=== PATIENT | female | born 1990 | race Caucasian/White ===

== ENCOUNTER 2016-09-12 18:08 | Emergency (ER) | payer OTHER ==
[~2016-09-12] VITALS: Ht 160 cm; Wt 104.5 kg
[~2016-09-12 18:08] MED LIST: AMOXICILLIN500 MG OR; AMOXICILLIN500 MG PO; BREVICON PO; CIPROFLOXACN500 MG PO; FLEXERIL PO; MACRODANTIN100 MG PO; MICONAZOLE2 % VT; MOTRIN800 MG PO; NAPROSYN500 MG PO; NO; NO HOME MEDS; NO MEDS; PENICILLN VK500 M1 OR; PRENATABS FA PO; TRAMADOL HYDROC50 MG PO; ULTRAM50 M1 PO; ZITHROMAX250 MG OR; ZOFRAN ODT4 MG PO
[2016-09-12 18:42] LABS: HEMOGLOBIN 13.4 g/dl (12.0-16.0); IMMATURE GRANULOCYTES 0.2 % (0.0-1.0); MEAN CELL VOLUME 86.2 fL CALC (80.0-100.0); MEAN CORPUSCULAR HGB 28.9 pG CALC (26.0-32.0); MEAN CORPUSCULAR HGB CONC 33.5 g/L CALC (32.0-36.0); NEUT# 8.61 thou/uL (2.00-7.15); RED BLOOD COUNT 4.64 mill/uL (4.20-5.60); RED CELL DISTRI WIDTH 13.3 % (11.5-15.5)
[2016-09-12 18:50] LABS: INFLUENZA A POSITIVE (NONE DETECT); INFLUENZA B NONE DETECTED (NONE DETECT)
[2016-09-12 18:54] LABS: ALBUMIN 4.9 g/dL (3.2-5.0); ALKALINE PHOSPHATASE 84 u/l (38-126); ANION GAP 22 (6-22 (CALC)); BILIRUBIN, TOTAL 0.5 mg/dL (0.0-1.4); BUN 8 mg/dL (7-17); BUN/CREATININE RATIO 11 (12-20 (CALC)); CARBON DIOXIDE 20 mmol/l (22-30); CHLORIDE 100 mmol/l (95-108); CREATININE 0.8 mg/dL (0.5-1.0); GFR > 60 ML/MIN (>=60 (CALC)); GFR FOR AFR.AMER. > 60 ML/MIN (>=60 (CALC)); GLUCOSE 158 mg/dL (65-105); POTASSIUM 3.9 mmol/l (3.5-5.1); SGOT/AST 22 u/l (14-36); SGPT/ALT 37 u/l (9-52); SODIUM 138 mmol/l (137-146); TOTAL PROTEIN 8.5 g/dL (6.3-8.2)
[2016-09-12] MEDS ORDERED: MOTRIN800 MG PO (20:21)
[2016-09-12] MEDS ORDERED: TAM75CAP PO (20:21)
[2016-09-12] MEDS ORDERED: AFRIN 12 HOUR0.05 % (20:21)
[2016-09-12] MEDS ORDERED: TYLENOL # 31 TA1 PO (20:21)
[2016-09-12 20:56] VITALS: BP 116/60
== END 2016-09-12 21:09 | disposition home or self-care (01) | DRG 153 ==
LOC: ED 18:08
PROVIDERS: Emergency Medicine
DX: J11.1 Influenza due to unidentified influenza virus with other respiratory manifestations (principal); R50.9 Fever, unspecified; R51 Headache; R05 Cough

== ENCOUNTER 2017-05-19 16:44 | Emergency (ER) | payer SELFPAY ==
[~2017-05-19] VITALS: Ht 160 cm; Wt 102.0 kg
[~2017-05-19 16:44] MED LIST changes: +AFRIN 12 HOUR0.05 %; +TAM75CAP PO; +TYLENOL # 31 TA1 PO
[2017-05-19 17:15] LABS: URINE BILIRUBIN - DIPSTICK NEGATIVE (NEGATIVE); URINE BLOOD DIPSTICK TRACE-INTACT (NEGATIVE); URINE COLOR YELLOW; URINE GLUCOSE - DIPSTICK NEGATIVE (NEGATIVE); URINE KETONE NEGATIVE (NEGATIVE); URINE NITRITE - DIPSTICK NEGATIVE (Negative); URINE PH 5.5 (4.5-8.0); URINE PROTEIN - DIPSTICK NEGATIVE (NEG-TRACE); URINE SPECIFIC GRAVITY 1.015; URINE UROBILINOGEN - DIPSTICK 0.2 E.U./dL (0.2)
[2017-05-19 17:16] LABS: URINE CLARITY TURBID; URINE LEUK ESTERASE SMALL (NEGATIVE)
[2017-05-19 17:37] LABS: HEMOGLOBIN 12.8 g/dl (12.0-16.0); IMMATURE GRANULOCYTES 0.3 % (0.0-1.0); MEAN CELL VOLUME 87.8 fL CALC (80.0-100.0); MEAN CORPUSCULAR HGB 28.8 pG CALC (26.0-32.0); MEAN CORPUSCULAR HGB CONC 32.8 g/L CALC (32.0-36.0); NEUT# 5.52 thou/uL (2.00-7.15); RED BLOOD COUNT 4.44 mill/uL (4.20-5.60); RED CELL DISTRI WIDTH 12.7 % (11.5-15.5)
[2017-05-19 17:48] LABS: ALBUMIN 4.1 g/dL (3.2-5.0); ALKALINE PHOSPHATASE 89 u/l (38-126); AMYLASE 72 u/l (30-110); ANION GAP 17 (6-22 (CALC)); BILIRUBIN, TOTAL 0.3 mg/dL (0.0-1.4); BUN 11 mg/dL (7-17); BUN/CREATININE RATIO 14 (12-20 (CALC)); CALCIUM 9.1 mg/dL (8.4-10.2); CARBON DIOXIDE 25 mmol/l (22-30); CHLORIDE 106 mmol/l (95-108); CREATININE 0.8 mg/dL (0.5-1.0); GFR > 60 ML/MIN (>=60 (CALC)); GFR FOR AFR.AMER. > 60 ML/MIN (>=60 (CALC)); GLUCOSE 110 mg/dL (65-105); LIPASE 68 u/l (23-300); POTASSIUM 3.9 mmol/l (3.5-5.1); SGOT/AST 30 u/l (14-36); SGPT/ALT 58 u/l (9-52); SODIUM 144 mmol/l (137-146); TOTAL PROTEIN 7.3 g/dL (6.3-8.2)
[2017-05-19 18:15] LABS: URINE BACTERIA RARE hpf; URINE SQUAMOUS EPITHELIAL CELL FEW EPI/hpf (0-FEW)
[2017-05-20 01:01] VITALS: BP 135/84
[2017-05-20] MEDS ORDERED: CIPROFLOXACN500 MG PO (01:01)
== END 2017-05-20 01:01 | disposition home or self-care (01) | DRG 690 ==
LOC: ED 16:44
PROVIDERS: Emergency Medicine
DX: N39.0 Urinary tract infection, site not specified (principal); B96.20 Unspecified Escherichia coli [E. coli] as the cause of diseases classified elsewhere; N83.202 Unspecified ovarian cyst, left side

== ENCOUNTER 2017-07-26 13:39 | Emergency (ER) | payer MEDICAID ==
[~2017-07-26] VITALS: Ht 160 cm; Wt 103.6 kg
[2017-07-26] MEDS ORDERED: SILVADENE1 % EX (14:04)
[2017-07-26] MEDS ORDERED: TORADOL PO (14:04)
[2017-07-26 14:17] VITALS: BP 151/95
== END 2017-07-26 14:17 | disposition home or self-care (01) | DRG 935 ==
LOC: ED 13:39
PROC: 2W2EX4Z Dressing of Right Hand using Bandage (ICD-10-PCS; principal; 2017-07-26)
DX: T23.261A Burn of second degree of back of right hand, initial encounter (principal); X10.2XXA Contact with fats and cooking oils, initial encounter; Y93.G3 Activity, cooking and baking; Y92.000 Kitchen of unspecified non-institutional (private) residence as the place of occurrence of the external cause

== ENCOUNTER 2017-11-06 16:04 | Emergency (ER) | payer SELFPAY ==
[~2017-11-06] VITALS: Ht 160 cm; Wt 90.0 kg
[~2017-11-06 16:04] MED LIST changes: +SILVADENE1 % EX; +TORADOL PO
[2017-11-06] MEDS ORDERED: AMOXICILLIN875 MG PO (17:14)
[2017-11-06 17:20] VITALS: BP 147/85
== END 2017-11-06 17:20 | disposition home or self-care (01) | DRG 153 ==
LOC: ED 16:04
DX: J02.0 Streptococcal pharyngitis (principal)

== ENCOUNTER 2017-11-16 08:20 | Emergency (ER) | payer OTHER ==
[~2017-11-16] VITALS: Ht 160 cm; Wt 100.0 kg
[~2017-11-16 08:20] MED LIST changes: +AMOXICILLIN875 MG PO
[2017-11-16 09:36] LABS: HEMATOCRIT 40.2 % (37.0-47.0); HEMOGLOBIN 13.3 g/dl (12.0-16.0); IMMATURE GRANULOCYTES 0.4 % (0.0-1.0); MEAN CELL VOLUME 89.7 fL CALC (80.0-100.0); MEAN CORPUSCULAR HGB 29.7 pG CALC (26.0-32.0); MEAN CORPUSCULAR HGB CONC 33.1 g/L CALC (32.0-36.0); NEUT# 3.75 thou/uL (2.00-7.15); RED BLOOD COUNT 4.48 mill/uL (4.20-5.60)
[2017-11-16 09:37] LABS: URINE BILIRUBIN - DIPSTICK NEGATIVE (NEGATIVE); URINE BLOOD DIPSTICK LARGE (NEGATIVE); URINE CLARITY CLOUDY; URINE COLOR YELLOW; URINE GLUCOSE - DIPSTICK NEGATIVE (NEGATIVE); URINE KETONE NEGATIVE (NEGATIVE); URINE LEUK ESTERASE SMALL (NEGATIVE); URINE NITRITE - DIPSTICK NEGATIVE (Negative); URINE PROTEIN - DIPSTICK TRACE mg/dL (NEG-TRACE); URINE UROBILINOGEN - DIPSTICK 0.2 E.U./dL (0.2)
[2017-11-16 09:41] LABS: URINE RBC 25-50 RBC/hpf (0-5)
[2017-11-16 09:42] LABS: URINE BACTERIA FEW hpf; URINE EPITHELIAL CELLS FEW EPI/hpf (0-FEW)
[2017-11-16 10:04] LABS: ALBUMIN 4.3 g/dL (3.2-5.0); ALKALINE PHOSPHATASE 78 u/l (38-126); AMYLASE 46 u/l (30-110); ANION GAP 17 (6-22 (CALC)); BILIRUBIN, TOTAL 0.6 mg/dL (0.0-1.4); BUN 6 mg/dL (7-17); BUN/CREATININE RATIO 8 (12-20 (CALC)); CARBON DIOXIDE 26 mmol/l (22-30); CHLORIDE 104 mmol/l (95-108); CREATININE 0.8 mg/dL (0.5-1.0); GFR > 60 ML/MIN (>=60 (CALC)); GFR FOR AFR.AMER. > 60 ML/MIN (>=60 (CALC)); LIPASE 49 u/l (23-300); POTASSIUM 4.4 mmol/l (3.5-5.1); SGOT/AST 16 u/l (14-36); SGPT/ALT 35 u/l (9-52); SODIUM 143 mmol/l (137-146); TOTAL PROTEIN 7.6 g/dL (6.3-8.2)
[2017-11-16] MEDS ORDERED: KEFLEX500 MG PO (10:58)
[2017-11-16 11:59] VITALS: BP 138/82
== END 2017-11-16 12:08 | disposition home or self-care (01) | DRG 392 ==
LOC: ED 08:20
PROVIDERS: Emergency Medicine
DX: R10.11 Right upper quadrant pain (principal); N39.0 Urinary tract infection, site not specified

== ENCOUNTER 2018-04-01 18:50 | Emergency (ER) | payer OTHER ==
[~2018-04-01] VITALS: Ht 160 cm; Wt 97.7 kg
[~2018-04-01 18:50] MED LIST changes: +KEFLEX500 MG PO
[2018-04-01 21:10] VITALS: BP 138/84
== END 2018-04-01 21:10 | disposition home or self-care (01) ==
LOC: ED 18:50
DX: S60.041A Contusion of right ring finger without damage to nail, initial encounter (principal); W22.03XA Walked into furniture, initial encounter; Y93.9 Activity, unspecified; Y92.009 Unspecified place in unspecified non-institutional (private) residence as the place of occurrence of the external cause

== ENCOUNTER 2018-10-08 07:27 | Emergency (ER) | payer OTHER ==
[~2018-10-08] VITALS: Ht 160 cm; Wt 104.0 kg
[2018-10-08] MEDS ORDERED: TAM75CAP PO (07:53)
[2018-10-08] MEDS ORDERED: ONDANSETRON4 MG PO (07:53)
[2018-10-08 08:16] VITALS: BP 135/77
== END 2018-10-08 08:17 | disposition home or self-care (01) ==
LOC: ED 07:27
DX: J11.1 Influenza due to unidentified influenza virus with other respiratory manifestations (principal); R05 Cough; R50.9 Fever, unspecified; R52 Pain, unspecified

== ENCOUNTER 2019-02-23 12:31 | Emergency (ER) | payer OTHER ==
[~2019-02-23] VITALS: Ht 162.6 cm; Wt 106.0 kg
[~2019-02-23 12:31] MED LIST changes: +ONDANSETRON4 MG PO
[2019-02-23 13:08] LABS: URINE BILIRUBIN - DIPSTICK NEGATIVE (NEGATIVE); URINE BLOOD DIPSTICK NEGATIVE (NEGATIVE); URINE COLOR YELLOW; URINE GLUCOSE - DIPSTICK NEGATIVE (NEGATIVE); URINE KETONE NEGATIVE (NEGATIVE); URINE NITRITE - DIPSTICK NEGATIVE (Negative); URINE PROTEIN - DIPSTICK NEGATIVE (NEG-TRACE)
[2019-02-23 13:09] LABS: URINE LEUK ESTERASE SMALL (NEGATIVE)
[2019-02-23 13:18] LABS: URINE BACTERIA RARE hpf; URINE SQUAMOUS EPITHELIAL CELL FEW EPI/hpf (0-FEW)
[2019-02-23] MEDS ORDERED: FIORICET PO (13:35)
[2019-02-23] MEDS ORDERED: CEPHALEXIN500 M1 PO (13:35)
[2019-02-23 13:37] VITALS: BP 138/83
== END 2019-02-23 13:43 | disposition home or self-care (01) ==
LOC: ED 12:31
PROVIDERS: Emergency Medicine
DX: G43.909 Migraine, unspecified, not intractable, without status migrainosus (principal); N39.0 Urinary tract infection, site not specified; J06.9 Acute upper respiratory infection, unspecified

== ENCOUNTER 2019-04-12 16:10 | Emergency (ER) | payer OTHER ==
[~2019-04-12] VITALS: Ht 162.6 cm; Wt 115.0 kg
[~2019-04-12 16:10] MED LIST changes: +CEPHALEXIN500 M1 PO; +FIORICET PO
[2019-04-12] MEDS ORDERED: PROAIR HFA108 MCG/AC IN (16:25)
[2019-04-12 16:44] LABS: URINE BILIRUBIN - DIPSTICK NEGATIVE (NEGATIVE); URINE BLOOD DIPSTICK MODERATE (NEGATIVE); URINE COLOR YELLOW; URINE GLUCOSE - DIPSTICK NEGATIVE (NEGATIVE); URINE KETONE NEGATIVE (NEGATIVE); URINE LEUK ESTERASE TRACE (NEGATIVE); URINE NITRITE - DIPSTICK NEGATIVE (Negative); URINE PROTEIN - DIPSTICK NEGATIVE (NEG-TRACE); URINE SPECIFIC GRAVITY <=1.005; URINE UROBILINOGEN - DIPSTICK 0.2 E.U./dL (0.2)
[2019-04-12] MEDS ORDERED: OCELLA1 TAB PO (16:47)
[2019-04-12] MEDS ORDERED: TOPAMAX50 MG PO (16:48)
[2019-04-12] MEDS ORDERED: ZPAK PO (16:48)
[2019-04-12 16:53] LABS: URINE SQUAMOUS EPITHELIAL CELL FEW EPI/hpf (0-FEW)
[2019-04-12] MEDS ORDERED: MEDDOSEPAK PO (18:13)
[2019-04-12 18:20] VITALS: BP 139/79
== END 2019-04-12 18:20 | disposition home or self-care (01) ==
LOC: ED 16:10
DX: J45.909 Unspecified asthma, uncomplicated (principal)

== ENCOUNTER 2019-07-15 | Emergency (ER) | payer OTHER ==
[~2019-07-15] MED LIST changes: +MEDDOSEPAK PO; +OCELLA1 TAB PO; +PROAIR HFA108 MCG/AC IN; +TOPAMAX50 MG PO; +ZPAK PO
[2019-07-15 19:17] LABS: URINE BLOOD DIPSTICK NEGATIVE (NEGATIVE); URINE COLOR YELLOW; URINE GLUCOSE - DIPSTICK NEGATIVE (NEGATIVE); URINE KETONE TRACE mg/dL (NEGATIVE); URINE LEUK ESTERASE NEGATIVE (NEGATIVE); URINE NITRITE - DIPSTICK NEGATIVE (Negative); URINE PH 6.5 (4.5-8.0); URINE PROTEIN - DIPSTICK TRACE mg/dL (NEG-TRACE); URINE SPECIFIC GRAVITY 1.025; URINE UROBILINOGEN - DIPSTICK 0.2 E.U./dL (0.2)
[2019-07-15 19:18] LABS: URINE BILIRUBIN - DIPSTICK NEGATIVE (NEGATIVE)
[2019-07-15] MEDS ORDERED: LEVAQUIN750 MG PO (21:00)
== END 2019-07-15 21:32 | disposition home or self-care (01) ==
DX: J32.9 Chronic sinusitis, unspecified (principal)

== ENCOUNTER 2020-10-28 17:22 | Emergency (ER) | payer OTHER ==
[~2020-10-28] VITALS: Ht 162.6 cm; Wt 113.6 kg
[~2020-10-28 17:22] MED LIST changes: +LEVAQUIN750 MG PO
[2020-10-28 17:47] LABS: HEMATOCRIT 39.6 % (37.0-47.0); HEMOGLOBIN 12.4 g/dl (12.0-16.0); IMMATURE GRANULOCYTES 0.3 % (0.0-5.0); MEAN CELL VOLUME 87.2 fL CALC (80.0-100.0); MEAN CORPUSCULAR HGB 27.3 pG CALC (26.0-32.0); MEAN CORPUSCULAR HGB CONC 31.3 g/dL CAL (32.0-36.0); NEUT# 7.87 thou/uL (2.00-7.15); RED BLOOD COUNT 4.54 mill/uL (4.20-5.60); RED CELL DISTRI WIDTH 14.2 % (11.5-15.5)
[2020-10-28 18:00] LABS: ALBUMIN 4.5 g/dL (3.2-5.0); ALKALINE PHOSPHATASE 85 u/l (38-126); ANION GAP 13 (6-22 (CALC)); BILIRUBIN, TOTAL 0.5 mg/dL (0.0-1.4); BUN 10 mg/dL (7-17); BUN/CREATININE RATIO 11 (12-20 (CALC)); CARBON DIOXIDE 28 mmol/l (22-30); CHLORIDE 101 mmol/l (95-108); CREATININE 0.9 mg/dL (0.5-1.0); GFR > 60 ML/MIN (>=60 (CALC)); GFR FOR AFR.AMER. > 60 ML/MIN (>=60 (CALC)); POTASSIUM 3.9 mmol/l (3.5-5.1); SGOT/AST 28 u/l (14-36); SODIUM 138 mmol/l (137-146); TOTAL PROTEIN 8.4 g/dL (6.3-8.2)
[2020-10-28] MEDS ORDERED: METFORMIN HCL500 M1 PO (18:03)
[2020-10-28 19:32] VITALS: BP 105/78
== END 2020-10-28 19:43 | disposition home or self-care (01) ==
LOC: ED 17:22
PROVIDERS: Family Medicine
DX: R07.9 Chest pain, unspecified (principal); F32.9 Major depressive disorder, single episode, unspecified; J45.909 Unspecified asthma, uncomplicated; R73.03 Prediabetes

== ENCOUNTER 2023-06-16 23:32 | Emergency (ER) | payer OTHER ==
[~2023-06-16] VITALS: Ht 162.6 cm; Wt 109.0 kg
[~2023-06-16 23:32] MED LIST changes: +METFORMIN HCL500 M1 PO
[2023-06-16] MEDS ORDERED: AMOX/K CLAV875 M1 PO (23:37)
[2023-06-16 23:40] VITALS: BP 132/86
[2023-06-16 23:48] VITALS: BP 134/81
[2023-06-17 00:05] VITALS: BP 134/81
== END 2023-06-17 00:10 | disposition home or self-care (01) ==
LOC: ED 23:32
DX: K02.9 Dental caries, unspecified (principal); K04.7 Periapical abscess without sinus

== ENCOUNTER 2023-07-06 09:39 | Emergency (ER) | payer OTHER ==
[~2023-07-06] VITALS: Ht 162.6 cm; Wt 107.6 kg
[~2023-07-06 09:39] MED LIST changes: +AMOX/K CLAV875 M1 PO
[2023-07-06 09:51] VITALS: BP 168/85
[2023-07-06] MEDS ORDERED: VENTOLIN HFA108 MCG PO (09:59)
[2023-07-06 10:08] VITALS: BP 111/71
[2023-07-06 10:18] LABS: BASO% 0.4 % (0-3); EOS% 5.7 % (0-8); HEMATOCRIT 40.3 % (37.0-47.0); HEMOGLOBIN 12.6 g/dl (12.0-16.0); IMMATURE GRANULOCYTES 0.2 % (0.0-5.0); LYMPH% 32.9 % (15-41); MEAN CELL VOLUME 82.2 fL CALC (80.0-100.0); MEAN CORPUSCULAR HGB 25.7 pG CALC (26.0-32.0); MEAN CORPUSCULAR HGB CONC 31.3 g/dL CAL (32.0-36.0); MONO% 5.5 % (2-13); NEUT# 3.11 thou/uL (2.00-7.15); NEUT% 55.3 % (42-76); RED BLOOD COUNT 4.9 mill/uL (4.20-5.60); RED CELL DISTRI WIDTH 15.4 % (11.5-15.5)
[2023-07-06 10:28] LABS: ALBUMIN 4.5 g/dL (3.2-5.0); ALKALINE PHOSPHATASE 95 u/l (38-126); ANION GAP 12 (6-22 (CALC)); BILIRUBIN, TOTAL 0.3 mg/dL (0.02-1.3); BUN 10 mg/dL (7-17); BUN/CREATININE RATIO 13 (12-20 (CALC)); CARBON DIOXIDE 26 mmol/l (22-30); CHLORIDE 106 mmol/l (95-108); CREATININE 0.7 mg/dL (0.5-1.0); GFR FOR AFR.AMER. > 60 ML/MIN (>=60 (CALC)); GFR OTHER RACES > 60 ML/MIN (>=60 (CALC)); POTASSIUM 3.8 mmol/l (3.5-5.1); SGOT/AST 26 u/l (14-36); SODIUM 141 mmol/l (137-146); TOTAL PROTEIN 7.9 g/dL (6.3-8.2)
[2023-07-06 10:31] VITALS: BP 110/85
[2023-07-06 11:01] VITALS: BP 115/72
[2023-07-06] MEDS ORDERED: PAXLOVID 10 X 11 TAB PO (11:15)
[2023-07-06] MEDS ORDERED: ZOFRAN4 MG/TAB PO (11:15)
[2023-07-06 11:31] VITALS: BP 123/74
== END 2023-07-06 11:30 | disposition home or self-care (01) ==
LOC: ED 09:39
PROVIDERS: Family Medicine
DX: U07.1 COVID-19 (principal); R05.9 Cough, unspecified; R06.02 Shortness of breath; J02.9 Acute pharyngitis, unspecified; E66.9 Obesity, unspecified